=== PATIENT | female | born 2000 | race Caucasian/White ===

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

== ENCOUNTER → 2020-11-02 14:02 | Outpatient (CLI) | payer OTHER, MEDICAID, SELFPAY | PROVIDERS: PCP Family Medicine; Visit Provider Family Medicine | DX: R30.0 Dysuria (principal) | CPT/HCPCS: 81002; 81025; 87077; 87086; 87186 ==

== ENCOUNTER → 2021-02-13 12:47 | Outpatient (CLI) | payer OTHER, MEDICAID, SELFPAY ==
[2021-02-13 13:21] LABS: COVID19 -Nasal RAPID Negative (Negative)
== END ==
PROVIDERS: PCP Family Medicine; Referring Provider Nurse Practitioner Family; Visit Provider Nurse Practitioner Family
DX: Z20.822 Contact with and (suspected) exposure to COVID-19 (principal)
CPT/HCPCS: 87635

== ENCOUNTER → 2021-02-27 11:44 | Outpatient (CLI) | payer OTHER, MEDICAID, SELFPAY ==
[2021-02-27 14:17] LABS: COVID19 -Nasal RAPID Negative (Negative)
== END ==
PROVIDERS: PCP Family Medicine; Referring Provider Physician Assistant; Visit Provider Physician Assistant
DX: Z20.822 Contact with and (suspected) exposure to COVID-19 (principal); R09.89 Other specified symptoms and signs involving the circulatory and respiratory systems; R51.9 Headache, unspecified; R53.83 Other fatigue
CPT/HCPCS: 87635

== ENCOUNTER 2021-07-22 13:36 | Emergency (ER) | payer OTHER, SELFPAY ==
[2021-07-22 13:40] VITALS: BP 117/63; PULSE 88; RESP 16; TEMP 36.6; O2SAT 97
[2021-07-22] MEDS: diphenhydrAMINE 25 MG TABLET PO (13:51)
[2021-07-22 14:13] VITALS: BP 122/69; PULSE 79; O2SAT 97
[2021-07-22 14:30] VITALS: PULSE 67; O2SAT 99
--- NOTE | 2021-07-22 14:53 | ED_ITS ---
HPI - Allergic Reaction <Tommy Ram PA-C - Last Filed: 07/22/21 20:38> General Chief complaint: Allergic Reaction Stated complaint: thinks shes having allergic reaction Time Seen by Provider: 07/22/21 14:13 Source: patient Mode of arrival: Ambulatory History of Present Illness HPI narrative: Patient is a 21-year-old female who presents to the emergency room for evaluation a rash on her upper body. Patient explains that she awoke this morning with a pruritic rash on her upper extremities, the back of her neck, and abdomen. She states that she will experience pruritus in certain areas and begin to scratch, noting that ?welts? developed after scratching. She denies any changes in laundry detergents, body wash, new medications, new clothing, new foods, or any other possible irritants. Of note, her who is with her here in the emergency department states he is not experiencing similar symptoms. She denies fever, chills, chest pain, cough, shortness of breath, nausea, vomiting, diarrhea, constipation, abdominal pain, hematuria, dysuria, or any other concerning symptoms. No further concerns were voiced at this time. Related Data Previous Rx's Medication Instructions Recorded fluoxetine 40 mg capsule 40 mg PO DAILY #30 caps 06/26/21 norethindrone acetate 1 mg-ethinyl 1 tab PO DAILY #63 tabs 07/16/21 estradiol 20 mcg tablet (Loestrin) prednisone 20 mg tablet 20 mg PO DAILY 5 days #6 tabs 07/22/21 Allergies Allergy/AdvReac Type Severity Reaction Status Date / Time AMOXICILLIN Allergy Mild HIVES Uncoded 06/26/21 15:38 Review of Systems <Tommy Ram PA-C - Last Filed: 07/22/21 20:38> Constitutional Constitutional: Denies chills, Denies fatigue, Denies fever(s), Denies frequent falls, Denies lethargy and Denies weakness ENT Ears, Nose, Mouth, and Throat: Denies change in voice, Denies dizziness, Denies neck pain, Denies sore throat, Denies throat swelling and Denies tongue swelling Cardiovascular Cardiovascular: Denies chest pain, Denies irregular heart rhythm, Denies lightheadedness, Denies palpitations, Denies dyspnea, Denies dyspnea on exertion and Denies orthopnea Respiratory Respiratory: Denies dyspnea and Denies dyspnea on exertion Gastrointestinal Gastrointestinal: Denies abdominal pain, Denies change in bowel habits, Denies diarrhea, Denies nausea and Denies vomiting Genitourinary Genitourinary: Denies hematuria, Denies flank pain, Denies urinary incontinence and Denies urinary urgency Musculoskeletal Musculoskeletal: Denies neck pain Integumentary/Breasts Skin/Breast: Reports pruritus, Denies erythema, Reports rash, Denies skin pain, Denies sores and Denies wounds Neurologic Neurologic: Denies dizziness, Denies frequent falls and Denies weakness Endocrine Endocrine: Denies fatigue and Denies palpitations Allergic/Immunologic Allergic/Immunologic: Denies throat swelling and Denies tongue swelling Patient History <Tommy Ram PA-C - Last Filed: 07/22/21 20:38> Medical History Chicken pox Family History Father Hyperlipidemia Mother Mental health problem Grandfather Stroke Social History marital status: unmarried,single number of children: 0 household members: family lives independently: Yes occupational status: employed Smoking Status: Current some day smoker alcohol intake: never substance use type: does not use Smoking Status: Current some day smoker tobacco type: vaping Substance Use Type: marijuana Exam <Tommy Ram PA-C - Last Filed: 07/22/21 20:38> Narrative Exam Narrative: GENERAL: 21 year old patient appears stated age. Well-developed patient, in no acute distress. HEAD: Atraumatic. Normocephalic. EYES: Pupils equal round and reactive. Extraocular motions intact. No scleral icterus. No injection or drainage. ENT: Nose without bleeding, purulent drainage. Throat without erythema, tonsillar hypertrophy or exudate. Airway patent. NECK: Trachea midline. Non tender CARDIOVASCULAR: Regular rate and rhythm without murmurs, gallops, or rubs. RESPIRATORY: Clear to auscultation. Breath sounds equal bilaterally. No wheezes, rales, or rhonchi. GASTROINTESTINAL: Abdomen soft, non-tender, nondistended. EXTREMITIES: No edema or joint tenderness. BACK: Nontender without deformity or crepitance. No flank tenderness. NEURO: AOx3. SKIN: Scattered wheals noted throughout the bilateral upper extremities, posterior neck, distributed throughout the back, over the abdomen, and over the right hip. Rash is nontender to palpation and blanches with pressure. No significant signs of excoriation noted around the rash. No active discharge or bleeding noted. Initial Vital Signs Initial Vital Signs: Vital Signs Temperature 98 F 07/22/21 13:40 Pulse Rate 88 07/22/21 13:40 Respiratory Rate 16 07/22/21 13:40 Blood Pressure 117/63 07/22/21 13:40 Pulse Oximetry 97 07/22/21 13:40 Oxygen Delivery Method 07/22/21 13:40 <DO Jignesh Mohr Last Filed: 07/23/21 19:51> Initial Vital Signs Initial Vital Signs: Vital Signs Temperature 98 F 07/22/21 13:40 Pulse Rate 88 07/22/21 13:40 Respiratory Rate 16 07/22/21 13:40 Blood Pressure 117/63 07/22/21 13:40 Pulse Oximetry 97 07/22/21 13:40 Oxygen Delivery Method 07/22/21 13:40 Course <Tommy Ram PA-C - Last Filed: 07/22/21 20:38> Course Course Narrative: Patient provided Benadryl in the emergency department. She states that her rash is improved slightly. Orders Ordered: Discontinued Medications Diphenhydramine HCl (Diphenhydramine 25 Mg Tablet) 25 mg PO NOW ONE Stop: 07/22/21 13:44 Last Admin: 07/22/21 13:51 Dose: 25 mg Documented By: ADK Vital Signs Vital signs: Vital Signs - 8 hr 07/22/21 13:40 07/22/21 14:13 07/22/21 14:13 Temperature 98 F Pulse Rate 88 79 Respiratory Rate 16 Blood Pressure 117/63 122/69 Pulse Oximetry 97 97 Oxygen Delivery Method Room Air 07/22/21 14:30 Temperature Pulse Rate 67 Respiratory Rate Blood Pressure Pulse Oximetry 99 Oxygen Delivery Method <Sonia Mckeon DO - Last Filed: 07/23/21 19:51> Orders Ordered: Discontinued Medications Diphenhydramine HCl (Diphenhydramine 25 Mg Tablet) 25 mg PO NOW ONE Stop: 07/22/21 13:44 Last Admin: 07/22/21 13:51 Dose: 25 mg Documented By: YOLANDA Vital Signs Vital signs: Vital Signs - 8 hr 07/22/21 13:40 07/22/21 14:13 07/22/21 14:13 Temperature 98 F Pulse Rate 88 79 Respiratory Rate 16 Blood Pressure 117/63 122/69 Pulse Oximetry 97 97 Oxygen Delivery Method Room Air 07/22/21 14:30 Temperature Pulse Rate 67 Respiratory Rate Blood Pressure Pulse Oximetry 99 Oxygen Delivery Method MDM - Allergic Reaction <Tommy Ram PA-C - Last Filed: 07/22/21 20:38> MDM Narrative Medical decision making narrative: Differential diagnosis to consider but not limited to urticaria versus contact irritation versus eczema versus psoriasis. Physical exam findings are consistent with urticaria. I encouraged the patient to continue using Benadryl as needed for her symptoms. A short course of steroids has been sent to the patient's preferred pharmacy. I urged the patient to follow-up with primary care for further management of her symptoms persist, or to return to the emergency department if her symptoms worsen. Strict return precautions were discussed prior to discharge. Discharge Plan Departure Patient Disposition: Home Clinical Impression: Urticaria Instructions: DI for Hives Activity Restrictions/Additional Instructions: *You have been diagnosed with urticaria *What to do: *Please continue to take your regular medications as directed. [X] New medication prescriptions sent to your pharmacy: Prednisone- [facility] [place] [ ] New medication written as a paper prescription [ ] No new medications given You were evaluated in the emergency department today for a rash. Physical exam findings are consistent with urticaria which is a mild allergic reaction. I recommend continuing the use Benadryl as needed for treatment of the rash. A short course steroids had been sent to your preferred pharmacy. Please follow- up with primary care if your symptoms persist. Do not hesitate to return to the emergency department if you experience fever, painful rash, throat swelling, difficulty breathing, or any other concerning symptoms. *Please follow up with your primary care provider in 2-3 days, call for an appointment. Let them know you were seen in the Emergency Department and that we ask that you be seen in follow up. We will electronically transmit a record of today's note if your PCP is in our system *If you do not have a primary care provider please contact the [facility] Resource line at [phone]. They will ask some questions about your medical history and help get you set up with a doctor in the community. *Return to Emergency Department if you should have any new, worsening or concerning symptoms, such as fever greater than 101 F, shaking chills, worsening pain, persistent vomiting or other bothersome symptoms. Prescriptions: New prednisone 20 mg tablet 20 mg PO DAILY 5 Days Qty: 6 0RF Rx Instructions: Take 2 tablets the 1st day of treatment, 1 tablet per day for the remainder of the course No Action fluoxetine 40 mg capsule 40 mg PO DAILY Qty: 30 1RF norethindrone ac-eth estradiol [Loestrin 03/01 ()] 1-20 mg-mcg tablet 1 tab PO DAILY Qty: 63 3RF Referrals: Maryanne Sanchez DO [Primary Care Provider] - Visit Report Forms: Patient Portal/API <Sonia Mckeon DO - Last Filed: 07/23/21 19:51> Cosign ED Attending Cosshermanature Attestation: I was immediately available in the department for consultation. Documentation has been reviewed.
== END 2021-07-22 15:25 | disposition home or self-care (01) ==
PROVIDERS: Emergency Provider Physician Assistant; PCP Family Medicine
DX: L50.9 Urticaria, unspecified (principal)
CPT/HCPCS: 99283

== ENCOUNTER 2021-07-24 03:42 | Emergency (ER) | payer OTHER, SELFPAY ==
[2021-07-24 03:50] VITALS: BP 134/74; PULSE 80; RESP 18; TEMP 37.1; O2SAT 97; BMI 21.4
--- NOTE | 2021-07-24 04:02 | ED_ITS ---
HPI - Allergic Reaction General Chief complaint: Allergic Reaction Stated complaint: HIVES Time Seen by Provider: 07/24/21 03:52 Source: patient Mode of arrival: Ambulatory History of Present Illness HPI narrative: Patient is an otherwise healthy 21-year-old female who was seen here in the emergency department a couple days ago for a rash. No specific etiology the rash was found. She was sent home with steroids and instructed to take Benadryl. Since she was last here she states that the rash has continued. It is itching. She thinks it is potentially somewhat worse. No problems breathing. No vomiting. No fevers. Related Data Previous Rx's Medication Instructions Recorded fluoxetine 40 mg capsule 40 mg PO DAILY #30 caps 06/26/21 norethindrone acetate 1 mg-ethinyl 1 tab PO DAILY #63 tabs 07/16/21 estradiol 20 mcg tablet (Loestrin) prednisone 20 mg tablet 20 mg PO DAILY 5 days #6 tabs 07/22/21 hydroxyzine HCl 25 mg tablet 25 mg PO Q6-8H PRN itching #14 tabs 07/24/21 prednisone 20 mg tablet 20 mg PO DAILY #18 tabs 07/24/21 Allergies Allergy/AdvReac Type Severity Reaction Status Date / Time AMOXICILLIN Allergy Mild HIVES Uncoded 06/26/21 15:38 Review of Systems Constitutional Constitutional: Reports system reviewed and no additional complaints, except as documented ENT Ears, Nose, Mouth, and Throat: Reports system reviewed and no additional complaints, except as documented Respiratory Respiratory: Reports system reviewed and no additional complaints, except as documented Gastrointestinal Gastrointestinal: Reports system reviewed and no additional complaints, except as documented Integumentary/Breasts Skin/Breast: Reports system reviewed and no additional complaints, except as documented Hematologic/Lymphatic On Anticoagulants: No Allergic/Immunologic Allergic/Immunologic: Reports system reviewed and no additional complaints, except as documented Patient History Medical History Chicken pox Family History Father Hyperlipidemia Mother Mental health problem Grandfather Stroke Social History marital status: unmarried,single number of children: 0 household members: family lives independently: Yes occupational status: employed Smoking Status: Current some day smoker alcohol intake: never substance use type: does not use Smoking Status: Current some day smoker tobacco type: vaping Substance Use Type: marijuana Exam Initial Vital Signs Initial Vital Signs: Vital Signs Temperature 98.7 F 07/24/21 03:50 Pulse Rate 80 07/24/21 03:50 Respiratory Rate 18 07/24/21 03:50 Blood Pressure 134/74 07/24/21 03:50 Pulse Oximetry 97 07/24/21 03:50 Oxygen Delivery Method 07/24/21 03:50 Const General: cooperative, comfortable and well developed HENMT Head: normal to inspection and normocephalic Mouth: oral mucosae normal and moist mucous membranes Resp Effort & Inspection: normal respiratory effort Auscultation: clear to auscultation bilaterally Cardio Rate: regular rate Rhythm: regular rhythm Skin Other: Patient with a urticarial rash located on bilateral lower extremities that is worse on the left than the right. Mostly located proximal to the knees. Also has rash on her posterior upper neck. Also on her abdomen and upper extremities right being greater than left. No pustules. No vesicles. No drainage. Neuro General: patient alert, patient awake and moves all extremities Extrem General: normal to inspection and capillary refill normal Course Orders Ordered: Discontinued Medications Diphenhydramine HCl (Diphenhydramine 50 Mg/Ml Vial) 25 mg IV NOW ONE Stop: 07/24/21 04:03 Last Admin: 07/24/21 04:10 Dose: 25 mg Documented By: GAMAL Methylprednisolone (Methylprednisolone 125 Mg/2 Ml Vial) 125 mg IV NOW ONE Stop: 07/24/21 04:03 Last Admin: 07/24/21 04:10 Dose: 125 mg Documented By: GAMAL Vital Signs Vital signs: Vital Signs - 8 hr 07/24/21 03:50 07/24/21 05:23 Temperature 98.7 F Pulse Rate 80 81 Respiratory Rate 18 16 Blood Pressure 134/74 126/62 Pulse Oximetry 97 97 Oxygen Delivery Method Room Air MDM - Allergic Reaction MDM Narrative Medical decision making narrative: Unsure the exact etiology of the patient's rash/urticaria. Only minimal improvement with the Benadryl and steroids through the IV here in the ER. Her symptoms are not consistent with SJS, TEN, toxic shock syndrome, or other infectious etiologies. We will increase and prolong her steroids. We had a discussion about this. We also discussed starting on Zyrtec. Also sent home with hydroxyzine discharged help with the itching. Will have her contact her primary doctor for follow-up as she may need to see Dermatology. No indication for antibiotics. She was given return precautions. Exam is not consistent with anaphylaxis. She expressed understanding and agreement. Discharge Plan Departure Patient Disposition: Home Clinical Impression: Urticaria Instructions: DI for Hives Activity Restrictions/Additional Instructions: I do recommend you start taking Zyrtec with the generic version of this medication. You can purchase at [id number]. You can use a topical anti- itch cream like we discussed. We will increase her steroids both in dose and how long you been taking them. Starting today start taking 2 tablets a day for 5 days and then 1 tablet a day for 5 days and then 1/2 tablet a day for 5 days. Contact your primary doctor for a follow-up. Return to the emergency department for any new or worsening symptoms. Prescriptions: New prednisone 20 mg tablet 20 mg PO DAILY Qty: 18 0RF Rx Instructions: 2T PO QD for 5D then 1T PO QD for 5D then 1/2T PO QD for 5 days hydroxyzine HCl 25 mg tablet 25 mg PO Q6-8H PRN (Reason: itching) Qty: 14 0RF No Action fluoxetine 40 mg capsule 40 mg PO DAILY Qty: 30 1RF norethindrone ac-eth estradiol [Loestrin 03/01 (21)] 1-20 mg-mcg tablet 1 tab PO DAILY Qty: 63 3RF prednisone 20 mg tablet 20 mg PO DAILY 5 Days Qty: 6 0RF Rx Instructions: Take 2 tablets the 1st day of treatment, 1 tablet per day for the remainder of the course Referrals: Maryanne Sanchez DO [Primary Care Provider] - Visit Report Forms: Patient Portal/API
[2021-07-24] MEDS: methylPREDNISolone 125 MG/2 ML VIAL IV (04:10)
[2021-07-24] MEDS: diphenhydrAMINE 50 MG/ML VIAL 25 MG IV (04:10)
[2021-07-24 05:23] VITALS: BP 126/62; PULSE 81; RESP 16; O2SAT 97
== END 2021-07-24 05:24 | disposition home or self-care (01) ==
PROVIDERS: Emergency Provider Emergency Medicine; PCP Family Medicine
DX: L50.9 Urticaria, unspecified (principal)
CPT/HCPCS: 96374; 96375; 99283; 99284; J1200; J2930

== ENCOUNTER → 2021-08-06 18:46 | Outpatient (CLI) | payer OTHER, SELFPAY ==
[2021-08-06 20:26] LABS: Influenza A - CEPHEID Flu A NEGATIVE (NEGATIVE); Influenza B - CEPHEID Flu B NEGATIVE (NEGATIVE)
[2021-08-06 21:26] LABS: COVID-19 CEPHEID PCR (VTM/NP) POSITIVE (Negative)
== END ==
PROVIDERS: PCP Family Medicine; Visit Provider Nurse Practitioner Family
DX: R50.9 Fever, unspecified (principal)
CPT/HCPCS: 0240U

== ENCOUNTER 2021-12-24 22:47 | Emergency (ER) | payer OTHER, SELFPAY ==
[2021-12-24 22:56] VITALS: PULSE 71; O2SAT 99
[2021-12-24 22:57] VITALS: BP 130/70; PULSE 69; O2SAT 99
[2021-12-24 23:00] VITALS: BP 132/66; PULSE 67; O2SAT 99
[2021-12-24 23:12] VITALS: BP 132/66; PULSE 68; RESP 16; TEMP 36.5; O2SAT 99; BMI 22.1
[2021-12-24 23:28] LABS: Add Manual Diff / Slide Review NO; Basophils Absolute Auto 0 /uL (0-100); Basophils Percent Auto 0.4 % (0-2); Eosinophils Absolute Auto 100 /uL (0-450); Eosinophils Percent Auto 1.5 % (2-4); Hemoglobin 13.6 g/dL (12.0-16.0); Lymphocytes Absolute Auto 2800 /uL (1100-4500); Lymphocytes Percent Auto 38.5 % (25-40); Mean Corpuscular HGB Conc 33.2 % (30-36); Mean Corpuscular Volume 87.3 fL (80-100); Monocytes Absolute Auto 700 /uL (0-900); Monocytes Percent Auto 9.1 % (3-14); Neutrophils Absolute Auto 3600 /uL (1500-7000); Neutrophils Percent Auto 50.5 % (50-75); Platelet Count 253 X10^3/uL (150-400); Red Blood Cell Count 4.69 X10^6/uL (4.0-5.2); Red Cell Distribution Width 13.4 % (11.6-14.8); White Blood Cell Count 7.2 X10^3/uL (4.5-11.0)
[2021-12-24 23:30] VITALS: PULSE 64; O2SAT 99
--- NOTE | 2021-12-24 23:32 | DI.RAD.S_ITS ---
PROCEDURE: XR ABDOMEN 1V INDICATIONS: general abd pain TECHNIQUE: One view of the abdomen acquired. COMPARISON: None. FINDINGS: Surgical changes and devices: None. Bowel: Bowel gas pattern is normal. Soft tissues: No suspicious abdominal calcifications. Bones: No suspicious bony lesions. IMPRESSION: 1. No acute intra-abdominal radiographic abnormality. Dictated by: Tai Darnell M.D. on 12/25/2021 at 0:40 Approved by: Tai Darnell M.D. on 12/25/2021 at 0:40
--- NOTE | 2021-12-24 23:32 | ED_ITS ---
HPI - General Adult General Chief complaint: Abdominal Pain Stated complaint: Stomach pain Time Seen by Provider: 12/24/21 23:26 Source: patient Mode of arrival: Ambulatory History of Present Illness HPI narrative: Patient is a 21-year-old female who is here for evaluation of abdominal discomfort that is being on the past couple days. She states that it does seem to come and go and there periods of time was worse than others. It does seem to get worse with eating. She is had nausea but no vomiting. No urinary symptoms. She does state that she feels like she is constipated has been several days since she has had a bowel movement. No vaginal bleeding. No prior abdominal surgeries. Has not tried any him for symptoms prior to arrival. Related Data Previous Rx's Medication Instructions Recorded norethindrone acetate 1 mg-ethinyl 1 tab PO DAILY #63 tabs 07/16/21 estradiol 20 mcg tablet (Loestrin) Allergies Allergy/AdvReac Type Severity Reaction Status Date / Time Fluoxetine Allergy Severe Hives Uncoded 07/27/21 15:35 AMOXICILLIN Allergy Mild HIVES Uncoded 06/26/21 15:38 Review of Systems Constitutional Constitutional: Reports system reviewed and no additional complaints, except as documented Respiratory Respiratory: Reports system reviewed and no additional complaints, except as d ocumented Gastrointestinal Gastrointestinal: Reports system reviewed and no additional complaints, except as documented Genitourinary Genitourinary: Reports system reviewed and no additional complaints, except as documented Integumentary/Breasts Skin/Breast: Reports system reviewed and no additional complaints, except as documented Hematologic/Lymphatic On Anticoagulants: No Patient History Medical History Chicken pox Medication reaction Family History Father Hyperlipidemia Mother Mental health problem Grandfather Stroke Social History marital status: unmarried,single number of children: 0 household members: family lives independently: Yes occupational status: employed Smoking Status: Former smoker alcohol intake: never substance use type: does not use Smoking Status: Former smoker tobacco type: vaping alcohol intake frequency: a few times a week Substance Use Type: marijuana Exam Initial Vital Signs Initial Vital Signs: Vital Signs Pulse Rate 71 12/24/21 22:56 Pulse Oximetry 99 12/24/21 22:56 Resp Effort & Inspection: normal respiratory effort Auscultation: clear to auscultation bilaterally Cardio Rate: regular rate Rhythm: regular rhythm GI Inspection: normal to inspection Palpation: soft, No firm and No tender Skin General: no rashes or lesions noted Neuro General: patient alert, patient awake and moves all extremities Extrem General: normal to inspection and capillary refill normal Course Orders Ordered: ED Orders 12/24/21 23:05 Complete Blood Count AUTO DIFF Stat Comprehensive Metabolic Panel Stat Lipase Stat 12/24/21 23:32 XR abdomen 1V Stat Discontinued Medications Ondansetron HCl (Ondansetron 4 Mg/2 Ml Inj) 4 mg IV NOW ONE Stop: 12/24/21 23:33 Last Admin: 12/24/21 23:37 Dose: 4 mg Documented By: EUGENIA Ondansetron HCl (Ondansetron 4 Mg Odt Prepack) 1 bottle MISC SEEINSTR ONE Stop: 12/25/21 00:47 Last Admin: 12/25/21 00:55 Dose: 1 bottle Documented By: EUGENIA Vital Signs Vital signs: Vital Signs - 8 hr 12/24/21 23:12 12/25/21 00:58 12/24/21 22:56 Temperature 97.7 F Pulse Rate 68 57 L 71 Respiratory Rate 16 16 Blood Pressure 132/66 111/63 Pulse Oximetry 99 98 99 Oxygen Delivery Method Room Air Room Air 12/24/21 22:57 12/24/21 22:57 12/24/21 23:00 Temperature Pulse Rate 69 Respiratory Rate Blood Pressure 130/70 132/66 Pulse Oximetry 99 Oxygen Delivery Method 12/24/21 23:00 12/24/21 23:30 12/25/21 00:02 Temperature Pulse Rate 67 64 77 Respiratory Rate Blood Pressure Pulse Oximetry 99 99 98 Oxygen Delivery Method 12/25/21 00:30 Temperature Pulse Rate Respiratory Rate 20 Blood Pressure Pulse Oximetry 98 Oxygen Delivery Method Medical Decision Making Lab Data Lab results reviewed: Yes I reviewed the patient's lab results. Result diagrams: 12/24/21 23:05 12/24/21 23:05 Labs: Lab Results 12/24/21 12/24/21 Range/Units 23:05 23:05 WBC 7.2 (4.5-11.0) X10^3/uL RBC 4.69 (4.0-5.2) X10^6/uL Hgb 13.6 (12.0-16.0) g/dL Hct 41.0 (36-46) % MCV 87.3 (80-100) fL MCH 29.0 (26-34) PG MCHC 33.2 (30-36) % RDW 13.4 (11.6-14.8) % Plt Count 253 (150-400) X10^3/uL Neut % (Auto) 50.5 (50-75) % Lymph % (Auto) 38.5 (25-40) % [place] % (Auto) 9.1 (3-14) % Eos % (Auto) 1.5 L (2-4) % Baso % (Auto) 0.4 (0-2) % Neut # (Auto) 3600 (6042-5962) /uL Lymph # (Auto) 2800 (6414-3906) /uL [place] # (Auto) 700 (0-900) /uL Eos # (Auto) 100 (0-450) /uL Baso # (Auto) 0 (0-100) /uL Sodium 140 (137-145) mmol/L Potassium 3.7 (3.4-5.1) mmol/L Chloride 105 (98-107) mmol/L Carbon Dioxide 27 (22-32) mmol/L BUN 9 (7-17) mg/dL Creatinine 0.66 (0.52-1.04) mg/dL Estimated GFR > 60 (>60) mL/min BUN/Creatinine Ratio 13.6 (6-22) Glucose 104 H (70-100) mg/dL Calcium 9.2 (8.4-10.2) mg/dL Total Bilirubin 0.4 (0.2-1.3) mg/dL AST 28 (14-36) IU/L ALT 17 (<35) IU/L Alkaline Phosphatase 83 (38-126) U/L Total Protein 8.1 (6.3-8.2) g/dL Albumin 4.8 (3.5-5.0) g/dL Globulin 3.3 (1.7-4.1) g/dL Albumin/Globulin Ratio 1.5 (1.0-2.8) Lipase 118 (23-300) U/L Point of Care Testing Test Results Negative Urine Dip Bedside Urine Glucose Negative Bedside Urine Bilirubin - Negative Bedside Urine Ketone - Negative Urine Specific Kingsley 1.015 Bedside Urine Occult Blood - Negative Bedside Urine pH 7.5 Bedside Urine Protein - Negative Bedside Urine Urobilinogen - Negative Bedside Urine Nitrite - Negative Bedside Urine Leukocytes - Negative Esterase Point of care testing: Point of Care Testing Test Results Negative Urine Dip Bedside Urine Glucose Negative Bedside Urine Bilirubin - Negative Bedside Urine Ketone - Negative Urine Specific Kingsley 1.015 Bedside Urine Occult Blood - Negative Bedside Urine pH 7.5 Bedside Urine Protein - Negative Bedside Urine Urobilinogen - Negative Bedside Urine Nitrite - Negative Bedside Urine Leukocytes - Negative Esterase Imaging Data Abdominal x-ray: Radiologist's Impression: [address] [address] XRay Report Signed Patient: Pari Matute MR#: [id number] : 2000 Acct:[id number] Age/Sex: 21 / F Date of Service: 12/24/21 Loc: ED Accession Number: [id number] ?? Procedure: XR abdomen 1V Ordering Provider: Joe Neal D.O. PROCEDURE:? XR ABDOMEN 1V ? INDICATIONS:? general abd pain ? TECHNIQUE:? One view of the abdomen acquired.? ? COMPARISON:? None. ? FINDINGS:? ? Surgical changes and devices:? None.? ? Bowel:? Bowel gas pattern is normal.? ? Soft tissues:? No suspicious abdominal calcifications.? ? Bones:? No suspicious bony lesions.? ? IMPRESSION:? ? 1.? No acute intra-abdominal radiographic abnormality. ? ? Dictated by: Tai Darnell M.D. on 12/25/2021 at 0:40 ? ? Approved by: Tai Darnell M.D. on 12/25/2021 at 0:40? [facility] Narrative Medical decision making narrative: Benign exam. Labs unremarkable. X-ray unremarkable. He feels better after Zofran. Will hold on further workup for now and any imaging studies. Was sent home with a prescription for Zofran. Was given return precautions and follow-up instructions. She expressed understanding and agreement. Discharge Plan Departure Patient Disposition: Home Clinical Impression: Abdominal pain, Nausea Instructions: DI for Abdominal Pain-Adult, DI for Nausea -- Adult Activity Restrictions/Additional Instructions: I recommend that you use the nausea medication as directed. He would a bland diet for now. Consider taking either stool softeners or laxatives to help with the constipation. Return to the emergency department for any new or worsening symptoms. Prescriptions: No Action norethindrone ac-eth estradiol [Loestrin 03/01 ()] 1-20 mg-mcg tablet 1 tab PO DAILY Qty: 63 3RF Referrals: Maryanne Sanchez DO [Primary Care Provider] - Visit Report Forms: Patient Portal/API
[2021-12-24 23:34] LABS: Alanine Aminotransferase 17 IU/L (<35); Albumin 4.8 g/dL (3.5-5.0); Albumin Globulin Ratio 1.5 (1.0-2.8); Alkaline Phosphatase 83 U/L (38-126); Aspartate Aminotransferase 28 IU/L (14-36); BUN Creatinine Ratio 13.6 (6-22); Bilirubin Total 0.4 mg/dL (0.2-1.3); Blood Urea Nitrogen 9 mg/dL (7-17); Calcium 9.2 mg/dL (8.4-10.2); Carbon Dioxide 27 mmol/L (22-32); Chloride 105 mmol/L (98-107); Estimated Glomerular Filt Rate > 60 mL/min (>60); Globulin 3.3 g/dL (1.7-4.1); Glucose 104 mg/dL (70-100); HEMOLYSIS < 15 (0-50); Lipase 118 U/L (23-300); Potassium 3.7 mmol/L (3.4-5.1); Sodium 140 mmol/L (137-145); Total Protein 8.1 g/dL (6.3-8.2)
[2021-12-24] MEDS: ONDANSETRON 4 MG/2 ML INJ IV (23:37)
[2021-12-25 00:02] VITALS: PULSE 77; O2SAT 98
[2021-12-25 00:30] VITALS: RESP 20; O2SAT 98
[2021-12-25] MEDS: ONDANSETRON 4 MG ODT PREPACK 1 BOTTLE MISC (00:55)
[2021-12-25 00:58] VITALS: BP 111/63; PULSE 57; RESP 16; O2SAT 98
== END 2021-12-25 01:00 | disposition home or self-care (01) ==
PROVIDERS: Emergency Provider Emergency Medicine; PCP Family Medicine
DX: R10.84 Generalized abdominal pain (principal); R11.0 Nausea
CPT/HCPCS: 36415; 74018; 80053; 81003; 81025; 83690; 85025; 96374; 99284; J2405

== ENCOUNTER 2022-05-06 09:55 | Outpatient (RCR) | payer OTHER, SELFPAY ==
--- NOTE | 2022-05-06 18:05 | PT.OPPOC ---
Physical, Occupational & Speech Therapy At [facility] Current Diagnoses Low back pain, unspecified (05/06/22) Abnormal posture (05/06/22) Weakness (05/06/22) Visit Care Team Role Provider Type Maryanne Sanchez DO Attending Provider Physician Family Provider Primary Care Provider Referring Provider Specialty: Family Practice Address: [address] [place] [address], [facility] Email: [email or web address] Plan Of Care PT-OP-T Assessment and Plan Start: 05/01/22 16:53 Freq: Status: Active Protocol: Document 05/06/22 09:47 [facility] (Rec: 05/06/22 10:34 [facility] [id number]) Physical Therapy Assessment Rehab Potential Rehabilitation Potential Good Evaluation Complexity Number of Personal Factors/Comorbidities 3 or More Number of Body Systems Impaired 4 or More Clinical Presentation at Evaluation Evolving Impairments Impairments Activity Tolerance,Balance, Functional Activities, Functional Mobility,Gait,Pain, Posture,ROM,Soft Tissue Mobility,Strength Other Impairments pt only has 1 day off a week to see PT Goals ROM Project Crew Worker Goal (LTG) Pt will have full ROM w/o inc pain in order to allow pt to bend and twist as needed w/ ADLs and work w/o inc pain LTG Duration 07/15/22 strength Short Term Goal (STG) Pt will be indep w/HEP STG Duration 06/14/22 Project Crew Worker Goal (LTG) Pt will score at least 3/5 on LPM and EFT and 5/5 on MMT of BLEs to shwo imporved strength and stabiltiy in order to allow pt to return to all activities like running and work w/o inc pain. LTG Duration 07/15/22 posture Short Term Goal (STG) Pt will score at least 3/5 on VCT to show improved postural alignment. STG Duration 06/10/22 Project Crew Worker Goal (LTG) Pt will score at least 4/5 on VCT to show improved postural alignment. LTG Duration 07/15/22 activities Short Term Goal (STG) Pt will be able to work w/o inc pain in back. STG Duration 06/19/22 Project Crew Worker Goal (LTG) Pt will be able to return to running w/o inc back pain. LTG Duration 07/15/22 Assessment Summary Assessment Pt presents w/LBP with 2 major instances that her back caught and she had trouble walking fro a couple days after. the first one happended 2 months ago. She has had midback pain in scap region also since she has been at her current job, [employer] she gets most days that she is working. She notes she has not been runing since she started to have pain in low back in Nov d /t pain. She has tried new shoes but that did not help. She also gets B achilles pain w/running. She has poor core stability and impaired postural aligment w/pt reporting poor posture when completing job functions. Pt has significantly elevated L sholder which may be indicitive of a functional scoliosis d/t her dysfunctions . She would benefit from skilled PT to work on opsture, core, LE strength and scap stability along w/gait to dec pain. Physical Therapy Plan Frequency and Duration Frequency of Treatment 1x/Week Duration of treatment (weeks) 10 Plan of Care Start Date 05/06/22 Plan of Care End Date 07/15/22 Therapeutic Interventions Therapeutic Interventions Aquatic Therapy,Balance Training,Gait Training,Home Exercise Program,Joint Mobilizations,Manual Therapy, Neuromuscular Re-education, Patient/Caregiver Education, Self-Care/Home Management,Soft Tissue Mobilization,Taping, Therapeutic Activities, Therapeutic Exercises Modalities Cold Pack/Ice Massage,Electric Stimulation,Hot Packs, Infrared Therapy,Traction- Mechanical,Ultrasound Next Visit Focus/Plan Next Note Type Treatment Note Next Visit Plan HEP: wall posture, DL isometric(abdomenal series), hip hinge w/dowel, open book Manual: start w/thoracic mobility especailly L scap, hip mobility, sacrum and innominate mobility Plan of Care Dates Plan of Care Start Date 05/06/22 Plan of Care End Date 07/15/22 Electronically Signed by: Tamika Robert, PT 05/08/22 3349 If you are in agreement with this Plan of Care, please return a signed and dated copy. I have reviewed this Plan of Care and certify that the skilled therapy services above are required to meet the patient?s needs. Physician Signature Date Printed Name and Credentials Clinical Instructor Signature Printed Name and Credentials
--- NOTE | 2022-05-06 18:05 | PT.OIE ---
Current Diagnoses Low back pain, unspecified (05/06/22) Abnormal posture (05/06/22) Weakness (05/06/22) Past Medical History (Last Updated 04/09/22 @ 07:38 by Maryanne Sanchez DO) Anxiety and depression Chicken pox Medication reaction Visit Care Team Role Provider Type Maryanne Sanchez DO Attending Provider Physician Family Provider Primary Care Provider Referring Provider Specialty: Family Practice Address: [address] [place] [address], [facility] Email: [email or web address] Physical Therapy Initial Evaluation PT-OP-A Visit Information Start: 05/01/22 16:53 Freq: Status: Active Protocol: Document 05/06/22 09:47 [facility] (Rec: 05/06/22 10:34 [facility] [id number]) Out-Patient Physical Therapy Visit Information Visit Information Visit Type Initial Evaluation Visit Start Time 09:58 Visit Stop Time 10:30 Total Visit Minutes 32 Visit Number 1 Number of SALES SERVICE ROUTE MANAGER Visits 0 PT-OP-B Current Condition Start: 05/01/22 16:53 Freq: Status: Active Protocol: Document 05/06/22 09:47 [facility] (Rec: 05/06/22 10:34 [facility] [id number]) Current Condition History of Current Condition Onset Date 1 month ago Current Complaints LBP History of Current Condition Pt reports she was bending over to pecan picker her cat and it was the worst pain right away and after had trouble walking and standing about 2 months ago. It lasted through the next day then she could walk. She had to hold her breatht o walk up to that. it has happened again at work and she was reaching and shredding paper and reached fwd and it happend again. This was a few weeks after. Her back now gets sore really easily and is now scared taht will happen again . She typically gets sore in her upper back. In Nov, she was chopping wood and had pain just on L side. Prior to this no low back soreness. 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 She has to bend fwd to this. Normally her soreness is btwn shoulder blades . She has had this job for the past 7 months. Does not feel the soreness on days off. Occ she gets LBP w/periods. Denies pain recently in low back since last instance of catching. Pt tries to get to the gym 1x/day. She is scared to bend over now but does try to do gentle stretches at gym. At gym, she typically odes some UE machines and abodmenal exercises and elliptical. She used to run on treadmill but it hurts her back (this started in Nov) and she would feel it w/in 10 min. She got better running shoes and that didn't help. she also gets pain in B achilles w/running Treatment Goals Patient/Caregiver Goals work through day w/pain, get back to running, have some self care activities to help w /LB if she aggrevates it. PT-OP-C Subjective Start: 05/01/22 16:53 Freq: Status: Active Protocol: Document 05/06/22 09:47 [facility] (Rec: 05/06/22 10:34 [facility] [id number]) Patient Questionnaires Oswestry Low Back Index Oswestry Score 6/50 OP-PT Pain Assessment Location low back Pain Location Details scap region B; LB Intensity 7 Description Aching,With Movement Frequency Intermittent Pain Aggravating Factors Bending Other Pain Aggravating Factors moving around during day, normally by midday; sitting on couch (LB) Other Pain Alleviating Factors foam roll PT-OP-D Balance Start: 05/01/22 16:53 Freq: Status: Active Protocol: Document 05/06/22 09:47 [facility] (Rec: 05/06/22 10:34 [facility] [id number]) Balance Tests Single Limb Standing Single Limb- Right ld lat lean R >30 sec- mult deviations (has to wiggle foot ) Single Limb- Left lat trunk lean L >30 sec PT-OP-F Manual Assessment Start: 05/01/22 16:53 Freq: Status: Active Protocol: Document 05/06/22 09:47 [facility] (Rec: 05/06/22 10:34 [facility] [id number]) Manual Assessments Joint Mobility Assessment Joint Mobility Assessment equal greater troch height, R iliac crest mild higher PT-OP-G Mobility & Gait Start: 05/01/22 16:53 Freq: Status: Active Protocol: Document 05/06/22 09:47 [facility] (Rec: 05/06/22 10:34 [facility] [id number]) OP Gait Assessment Comments Gait Comments lat lean to L w/WB on LLE, harder landing on LLE PT-OP-J Posture/Palpation/Skin Start: 05/01/22 16:53 Freq: Status: Active Protocol: Document 05/06/22 09:47 [facility] (Rec: 05/06/22 10:34 [facility] [id number]) Posture Evaluation [facility] Postural Classification System Julio Postural Classifications Posterior/Posterior Vertebral Compression Test 1 Elbow Flexion Test 1 Lumbar Protective Mechanism Left AP 0 Lumbar Protective Mechanism Right AP 1 Lumbar Protective Mechanism Left PA 1 Lumbar Protective Mechanism Right PA 0 Comments Posture Comments L shoulder significantly higher and scap fwd rotated and abd more; sligth R SB; R pelvic shear, B pronation PT-OP-K Range of Motion Start: 05/01/22 16:53 Freq: Status: Active Protocol: Document 05/06/22 09:47 [facility] (Rec: 05/06/22 10:34 [facility] [id number]) Lumbar Spine Range of Motion Lumbar Spine Active Percentage Flexion 50 Extension 100 Rotation Left 60 Rotation Right 80 Lateral Flexion Left 100 Lateral Flexion Right 100 ROM Limitations Soft Tissue Tightness,Pain Comments above knee caps w/lumbar only; 35% lumbar, 65% hips-pain w/ flex on L & L rot PT-OP-L Special Tests Start: 05/01/22 16:53 Freq: Status: Active Protocol: Document 05/06/22 09:47 [facility] (Rec: 05/06/22 10:34 [facility] [id number]) Special Tests Lumbar Spine Special Tests Slump Test Results dural and neural tension B Straight Leg Raise Test Results positive for neutral tension B -much dec ROM w/DF PT-OP-M Strength Start: 05/01/22 16:53 Freq: Status: Active Protocol: Document 05/06/22 09:47 [facility] (Rec: 05/06/22 10:34 [facility] [id number]) Hip Strength Hip Manual Muscle Testing Right Flexion (L2) 4- Good- Extension (S1) 3+ Fair+ Abduction 4- Good- Adduction 3+ Fair+ External Rotation 4 Good Internal Rotation 4 Good Left Flexion (L2) 4- Good- Extension (S1) 3+ Fair+ Abduction 4- Good- Adduction 3+ Fair+ External Rotation 3+ Fair+ Internal Rotation 4- Good- Comments dec core w/B testing Knee Strength Knee Manual Muscle Testing Right Flexion (S2) 5 Normal Extension (L3) 5 Normal Left Flexion (S2) 5 Normal Extension (L3) 5 Normal PT-OP-T Assessment and Plan Start: 05/01/22 16:53 Freq: Status: Active Protocol: Document 05/06/22 09:47 [facility] (Rec: 05/06/22 10:34 [facility] [id number]) Physical Therapy Assessment Rehab Potential Rehabilitation Potential Good Evaluation Complexity Number of Personal Factors/Comorbidities 3 or More Number of Body Systems Impaired 4 or More Clinical Presentation at Evaluation Evolving Impairments Impairments Activity Tolerance,Balance, Functional Activities, Functional Mobility,Gait,Pain, Posture,ROM,Soft Tissue Mobility,Strength Other Impairments pt only has 1 day off a week to see PT Goals ROM Mcc Goal (LTG) Pt will have full ROM w/o inc pain in order to allow pt to bend and twist as needed w/ ADLs and work w/o inc pain LTG Duration 07/15/22 strength Short Term Goal (STG) Pt will be indep w/HEP STG Duration 06/14/22 Coil Winder Goal (LTG) Pt will score at least 3/5 on LPM and EFT and 5/5 on MMT of BLEs to shwo imporved strength and stabiltiy in order to allow pt to return to all activities like running and work w/o inc pain. LTG Duration 07/15/22 posture Short Term Goal (STG) Pt will score at least 3/5 on VCT to show improved postural alignment. STG Duration 06/10/22 Coil Winder Goal (LTG) Pt will score at least 4/5 on VCT to show improved postural alignment. LTG Duration 07/15/22 activities Short Term Goal (STG) Pt will be able to work w/o inc pain in back. STG Duration 06/19/22 Coil Winder Goal (LTG) Pt will be able to return to running w/o inc back pain. LTG Duration 07/15/22 Assessment Summary Assessment Pt presents w/LBP with 2 major instances that her back caught and she had trouble walking fro a couple days after. the first one happended 2 months ago. She has had midback pain in scap region also since she has been at her current job, [employer] she gets most days that she is working. She notes she has not been runing since she started to have pain in low back in Nov d /t pain. She has tried new shoes but that did not help. She also gets B achilles pain w/running. She has poor core stability and impaired postural aligment w/pt reporting poor posture when completing job functions. Pt has significantly elevated L sholder which may be indicitive of a functional scoliosis d/t her dysfunctions . She would benefit from skilled PT to work on opsture, core, LE strength and scap stability along w/gait to dec pain. Physical Therapy Plan Frequency and Duration Frequency of Treatment 1x/Week Duration of treatment (weeks) 10 Plan of Care Start Date 05/06/22 Plan of Care End Date 07/15/22 Therapeutic Interventions Therapeutic Interventions Aquatic Therapy,Balance Training,Gait Training,Home Exercise Program,Joint Mobilizations,Manual Therapy, Neuromuscular Re-education, Patient/Caregiver Education, Self-Care/Home Management,Soft Tissue Mobilization,Taping, Therapeutic Activities, Therapeutic Exercises Modalities Cold Pack/Ice Massage,Electric Stimulation,Hot Packs, Infrared Therapy,Traction- Mechanical,Ultrasound Next Visit Focus/Plan Next Note Type Treatment Note Next Visit Plan HEP: wall posture, DL isometric(abdomenal series), hip hinge w/dowel, open book Manual: start w/thoracic mobility especailly L scap, hip mobility, sacrum and innominate mobility
--- NOTE | 2022-06-04 08:43 | PT.OPDS ---
Current Diagnoses Low back pain, unspecified (05/06/22) Abnormal posture (05/06/22) Weakness (05/06/22) Visit Care Team Role Provider Type Maryanne Sanchez DO Attending Provider Physician Family Provider Primary Care Provider Referring Provider Specialty: Family Practice Address: [address] [place] [address], [facility] [place], [address] Email: [email or web address] Visit Number Visit Number 1 Discharge Summary PT-OP-B Current Condition Start: 05/01/22 16:53 Freq: Status: Active Protocol: Document 05/06/22 09:47 [facility] (Rec: 05/06/22 10:34 [facility] [id number]) Current Condition History of Current Condition Onset Date 1 month ago Current Complaints LBP History of Current Condition Pt reports she was 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 It lasted through the next day then she could walk. She had to hold her breatht o walk up to that. it has happened again at work and she was reaching and shredding paper and reached fwd and it happend again. This was a few weeks after. Her back now gets sore really easily and is now scared taht will happen again . She typically gets sore in her upper back. In Nov, she was chopping wood and had pain just on L side. Prior to this no low back soreness. 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 She has to bend fwd to this. Normally her soreness is btwn shoulder blades . She has had this job for the past 7 months. Does not feel the soreness on days off. Occ she gets LBP w/periods. Denies pain recently in low back since last instance of catching. Pt tries to get to the gym 1x/day. She is scared to bend over now but does try to do gentle stretches at gym. At gym, she typically odes some UE machines and abodmenal exercises and elliptical. She used to run on treadmill but it hurts her back (this started in Nov) and she would feel it w/in 10 min. She got better running shoes and that didn't help. she also gets pain in B achilles w/running Treatment Goals Patient/Caregiver Goals work through day w/pain, get back to running, have some self care activities to help w /LB if she aggrevates it. PT-OP-C Subjective Start: 05/01/22 16:53 Freq: Status: Active Protocol: Document 05/06/22 09:47 [facility] (Rec: 05/06/22 10:34 [facility] [id number]) Patient Questionnaires Oswestry Low Back Index Oswestry Score 6/50 OP-PT Pain Assessment Location low back Pain Location Details scap region B; LB Intensity 7 Description Aching,With Movement Frequency Intermittent Pain Aggravating Factors Bending Other Pain Aggravating Factors moving around during day, normally by midday; sitting on couch (LB) Other Pain Alleviating Factors foam roll PT-OP-D Balance Start: 05/01/22 16:53 Freq: Status: Active Protocol: Document 05/06/22 09:47 [facility] (Rec: 05/06/22 10:34 [facility] [id number]) Balance Tests Single Limb Standing Single Limb- Right ld lat lean R >30 sec- mult deviations (has to wiggle foot ) Single Limb- Left lat trunk lean L >30 sec PT-OP-F Manual Assessment Start: 05/01/22 16:53 Freq: Status: Active Protocol: Document 05/06/22 09:47 [facility] (Rec: 05/06/22 10:34 [facility] [id number]) Manual Assessments Joint Mobility Assessment Joint Mobility Assessment equal greater troch height, R iliac crest mild higher PT-OP-G Mobility & Gait Start: 05/01/22 16:53 Freq: Status: Active Protocol: Document 05/06/22 09:47 [facility] (Rec: 05/06/22 10:34 [facility] [id number]) OP Gait Assessment Comments Gait Comments lat lean to L w/WB on LLE, harder landing on LLE PT-OP-J Posture/Palpation/Skin Start: 05/01/22 16:53 Freq: Status: Active Protocol: Document 05/06/22 09:47 [facility] (Rec: 05/06/22 10:34 [facility] [id number]) Posture Evaluation Julio Postural Classification System Julio Postural Classifications Posterior/Posterior Vertebral Compression Test 1 Elbow Flexion Test 1 Lumbar Protective Mechanism Left AP 0 Lumbar Protective Mechanism Right AP 1 Lumbar Protective Mechanism Left PA 1 Lumbar Protective Mechanism Right PA 0 Comments Posture Comments L shoulder significantly higher and scap fwd rotated and abd more; sligth R SB; R pelvic shear, B pronation PT-OP-K Range of Motion Start: 05/01/22 16:53 Freq: Status: Active Protocol: Document 05/06/22 09:47 [facility] (Rec: 05/06/22 10:34 [facility] [id number]) Lumbar Spine Range of Motion Lumbar Spine Active Percentage Flexion 50 Extension 100 Rotation Left 60 Rotation Right 80 Lateral Flexion Left 100 Lateral Flexion Right 100 ROM Limitations Soft Tissue Tightness,Pain Comments above knee caps w/lumbar only; 35% lumbar, 65% hips-pain w/ flex on L & L rot PT-OP-L Special Tests Start: 05/01/22 16:53 Freq: Status: Active Protocol: Document 05/06/22 09:47 [facility] (Rec: 05/06/22 10:34 [facility] [id number]) Special Tests Lumbar Spine Special Tests Slump Test Results dural and neural tension B Straight Leg Raise Test Results positive for neutral tension B -much dec ROM w/DF PT-OP-M Strength Start: 05/01/22 16:53 Freq: Status: Active Protocol: Document 05/06/22 09:47 [facility] (Rec: 05/06/22 10:34 [facility] [id number]) Hip Strength Hip Manual Muscle Testing Right Flexion (L2) 4- Good- Extension (S1) 3+ Fair+ Abduction 4- Good- Adduction 3+ Fair+ External Rotation 4 Good Internal Rotation 4 Good Left Flexion (L2) 4- Good- Extension (S1) 3+ Fair+ Abduction 4- Good- Adduction 3+ Fair+ External Rotation 3+ Fair+ Internal Rotation 4- Good- Comments dec core w/B testing Knee Strength Knee Manual Muscle Testing Right Flexion (S2) 5 Normal Extension (L3) 5 Normal Left Flexion (S2) 5 Normal Extension (L3) 5 Normal PT-OP-T Assessment and Plan Start: 05/01/22 16:53 Freq: Status: Active Protocol: Document 06/04/22 08:42 [facility] (Rec: 06/04/22 08:43 [facility] [id number]) Physical Therapy Assessment Assessment Summary Assessment patient called and requested DC. She reports she does not have time for PT at this time. pt was only seen for IE, so no progress made w/pt. Physical Therapy Plan Discharge Physical Therapy Discharge Reasons Patient Request
== END 2022-06-04 15:09 | disposition home or self-care (01) ==
LOC: PHYS 09:55
PROVIDERS: Family Provider Family Medicine; PCP Family Medicine; Referring Provider Family Medicine; Visit Provider Family Medicine
DX: M54.50 Low back pain, unspecified (principal); R53.1 Weakness; R29.3 Abnormal posture
CPT/HCPCS: 97162